=== PATIENT | female | born 1935 | race African-American/Black ===

== ENCOUNTER → 2020-11-01 | Outpatient (REF) ==
[~2020-11-01] MED LIST: COLACE 100100 MG/CAP PO; CORDARONE200 MG/TAB PO; ELIQUIS 5MG PO; LASIX 20MG TABL20 MG PO; LIPITOR 10MG10 MG PO; MASON NATURAL2000 IU PO; NORVASC 10MG10 MG PO; PRINIVIL40 MG PO; SYNTHROID0.175 MG PO; VERAPAMIL240 MG/TAB PO; VITAMIN B12 781 TAB PO
[2020-11-01 11:17] LABS: CREATININE, serum 0.52 (0.52-1.25)
== END ==
LOC: ZCOL.LAB 11:04
PROVIDERS: Internal Medicine
DX: Z01.89 Encounter for other specified special examinations (principal)

== ENCOUNTER 2021-10-11 10:54 | Emergency (ER) | payer MEDICARE ==
[~2021-10-11] VITALS: Ht 167.6 cm; Wt 79.5 kg
[2021-10-11 10:59] VITALS: BP 207/95; PULSE 93; TEMP 98.8
[2021-10-11] MEDS ORDERED: ATARAX 25MG25 MG/TAB PO (11:31)
== END 2021-10-11 11:45 | disposition home or self-care (01) ==
LOC: COL.ER 10:54
DX: R20.8 Other disturbances of skin sensation (principal); I10 Essential (primary) hypertension; E78.5 Hyperlipidemia, unspecified; E04.9 Nontoxic goiter, unspecified; Z79.899 Other long term (current) drug therapy; Z79.890 Hormone replacement therapy